=== PATIENT | male | born 1990 | race Caucasian/White ===

== ENCOUNTER 2016-08-15 13:58 | Inpatient (IN) | payer OTHER ==
[2016-08-15 15:34] VITALS: BMI 25.3
--- NOTE | 2016-08-15 18:05 | HP ---
CIWA Score - CIWA Score Nausea/Vomitin Muscle Tremors: 3 Anxiety: 4-Mod. Anxious/Guarded Agitation: 4-Moderately Restless Paroxysmal Sweats: 1-Minimal Palms Moist Orientation: 1-Uncertain about Date Tacttile Disturbances: 0-None Auditory Disturbances: 0-None Visual Disturbances: 0-None Headache: 0-None Present CIWA-Ar Total Score: 15 Admission ROS BHS - HPI Chief Complaint: WITHDRAWAL SX Allergies/Adverse Reactions: Allergies Allergy/AdvReac Type Severity Reaction Status Date / Time No Known Allergies Allergy Verified 08/15/16 16:57 History of Present Illness: 26 YEARS OLD MALE WITH LONG HISTORY OF ALCOHOL AND NICOTINE DEPENDENCE, DENIES MEDICAL ISSUE HAS BIPOLAR II TREATED REPRIDAL AND DEPAKOTE, IS ADMITTED TO DETOX Exam Limitations: No Limitations - Ebola screening Have you traveled outside of the country in the last 21 days: No Have you had contact with anyone from an Ebola affected area: No Have you been sick,other than usual withdrawal symptoms: No Do you have a fever: No - Review of Systems Constitutional: Chills, Changes in sleep, Weight Stable EENT: reports: Other (EYE GLASSES) Respiratory: reports: No Symptoms reported Cardiac: reports: No Symptoms Reported GI: reports: Nausea, Poor Fluid Intake, Vomiting, Abdominal cramping : reports: No Symptoms Reported Musculoskeletal: reports: No Symptoms Reported Integumentary: reports: No Symptoms Reported Neuro: reports: No Symptoms reported Endocrine: reports: No Symptoms Reported Hematology: reports: No Symptoms Reported Psychiatric: reports: Judgement Intact, other (BIPOLAR II) Other Systems: Reviewed and Negative Patient History - Patient Medical History Hx Anemia: No Hx Asthma: No Hx Chronic Obstructive Pulmonary Disease (COPD): No Hx Cancer: No Hx Cardiac Disorders: No Hx Congestive Heart Failure: No Hx Hypertension: No Hx Hypercholesterolemia: No Hx Pacemaker: No HX Cerebrovascular Accident: No Hx Seizures: No Hx Dementia: No Hx Diabetes: No Hx Gastrointestinal Disorders: No Hx Liver Disease: No Hx Genitourinary Disorders: No Hx Sexually Transmitted Disorders: No Hx Renal Disease (ESRD): No Hx Thyroid Disease: No Hx Human Immunodeficiency Virus (HIV): No Hx Hepatitis C: No Hx Depression: No Hx Suicide Attempt: No Hx Bipolar Disorder: Yes Hx Schizophrenia: No - Patient Surgical History Past Surgical History: No Hx Neurologic Surgery: No Hx Cataract Extraction: No Hx Cardiac Surgery: No Hx Lung Surgery: No Hx Breast Surgery: No Hx Breast Biopsy: No Hx Abdominal Surgery: No Hx Appendectomy: No Hx Cholecystectomy: No Hx Genitourinary Surgery: No Hx Orthopedic Surgery: No - PPD History Previous Implant?: Yes Documented Results: Positive w/proof Implanted On Prior [facility] Admission?: No PPD to be Administered?: No - Smoking Cessation Smoking history: Current every day smoker Have you smoked in the past 12 months: No Aproximately how many cigarettes per day: 20 Cigars Per Day: 0 Hx Chewing Tobacco Use: No Initiated information on smoking cessation: Yes 'Breaking Loose' booklet given: 08/15/16 - Substance & Tx. History Hx Alcohol Use: Yes Hx Substance Use: Yes Substance Use Type: Alcohol, Marijuana Hx Substance Use Treatment: Yes - Substances Abused Alcohol Route: Oral Frequency: Daily Amount used: LIQUOR- 1PINT, BEER- 3 (16OZ) Age of first use: 14 Date of Last Use: 08/15/16 Marijuana/Hashish Route: Smoking Frequency: Daily Amount used: $100 WORTH Age of first use: 14 Date of Last Use: 08/15/16 Admission Physical Exam BHS - Vital Signs Vital Signs: Vital Signs - 24 hr 08/15/16 15:32 Temperature 97.5 F L Pulse Rate 88 Respiratory 18 Rate Blood Pressure 116/60 - Physical General Appearance: Yes: Nourished, Appropriately Dressed, Mild Distress, Tremorous, Irritable, Sweating, Anxious HEENTM: Yes: Hearing grossly Normal, Normal ENT Inspection, Normocephalic, Normal Voice Respiratory: Yes: Chest Non-Tender, Lungs Clear, Normal Breath Sounds, No Respiratory Distress, No Accessory Muscle Use Neck: Yes: Supple, Trachea in good position Breast: Yes: Breasts Symetrical Cardiology: Yes: Regular Rhythm, Regular Rate, S1, S2 Abdominal: Yes: Non Tender, Soft Genitourinary: Yes: Within Normal Limits Back: Yes: Normal Inspection Musculoskeletal: Yes: full range of Motion, Gait Steady Extremities: Yes: Normal Range of Motion, Non-Tender, Tremors Neurological: Yes: Alert, Motor Strength 5/5, Normal Response, Other (BIPOLAR II ) Integumentary: Yes: Warm, Clammy Lymphatic: Yes: Within Normal Limits - Diagnostic (1) Alcohol dependence with uncomplicated withdrawal Current Visit: Yes Status: Acute (2) Nicotine dependence Current Visit: Yes Status: Acute Qualifiers: Nicotine product type: cigarettes Substance use status: in withdrawal Qualified Code(s): F17.213 - Nicotine dependence, cigarettes, with withdrawal (3) Vomiting Current Visit: Yes Status: Acute Qualifiers: Vomiting type: unspecified Vomiting Intractability: unspecified Nausea presence: with nausea Qualified Code(s): R11.2 - Nausea with vomiting, unspecified Comment: ALCOHOL WITHDRAWAL RELATED ZOFRAN (4) Bipolar II disorder Current Visit: Yes Status: Suspected Comment: BIPOLAR II LEVEL PENDING Cleared for Admission [facility] - Detox or Rehab [facility] Level of Care: Medically Managed Detox Regimen/Protocol: Librium [facility] Breath Alcohol Content Breath Alcohol Content: 0 Urine Drug Screen - Results Drug Screen Negative: No Urine Drug Screen Results: THC-Marijuana
[2016-08-15] MEDS ORDERED: MENTHOL/PHENOL 1 EACH UD MM PRN (18:12)
[2016-08-15] MEDS ORDERED: MAGNESIUM CITRATE 300 ML BOTTLE PO PRN (18:12)
[2016-08-15] MEDS ORDERED: LOPERAMIDE HCL 2 MG CAPSULE PO PRN (18:12)
[2016-08-15] MEDS ORDERED: guaiFENesin/D-METHORPHAN HB 10 ML UNIT-DOSE CUPS PO PRN (18:12)
[2016-08-15] MEDS ORDERED: MAGNESIUM HYDROX 2400MG/30ML ORAL SUSPENSION 30 ML CUP PO PRN (18:12)
[2016-08-15] MEDS ORDERED: P-EPHED 60MG/TRIPROLIDI 2.5MG TABLET PO PRN (18:12)
[2016-08-15] MEDS ORDERED: ACETAMINOPHEN 325 MG TABLET (FP) PO PRN (18:12)
[2016-08-15] MEDS ORDERED: MAG HYDROX/AL HYDROX/SIMETH 30 ML UNIT-DOSE CUP PO PRN (18:12)
[2016-08-15] MEDS ORDERED: IBUPROFEN 400 MG TABLET (FP) PO PRN (18:12)
[2016-08-15] MEDS ORDERED: chlordiazePOXIDE HCL 25 MG CAPSULE PO PRN (18:12)
[2016-08-15] MEDS ORDERED: ONDANSETRON *ODT* 4 MG TABLET SL PRN (18:19)
[2016-08-15] MEDS: THIAMINE HCL 100 MG TABLET (FP) PO SCH (22:33)
[2016-08-15] MEDS: chlordiazePOXIDE HCL 25 MG CAPSULE PO SCH (22:33)
[2016-08-15] MEDS: diphenhydrAMINE HCL 50 MG CAPSULE PO PRN (22:33)
[2016-08-16] MEDS: chlordiazePOXIDE HCL 25 MG CAPSULE PO SCH ×4 (05:49→22:51)
[2016-08-16] MEDS: NICOTINE POLACRILEX 4 MG GUM BC PRN ×2 (06:33→10:55)
[2016-08-16] MEDS ORDERED: PRENATAL VITAMINS W/ FOLIC ACID TABLET (FP) PO SCH (10:00)
[2016-08-16] MEDS ORDERED: NICOTINE 21 MG/24 HOURS TOPICAL PATCH TD SCH (10:00)
[2016-08-16 10:14] LABS: MCH 28.5 pg (25.7-33.7); MCHC 32.8 g/dl (32.0-35.9); MEAN PLT VOLUME 11.7 fl (7.5-11.1); PLATELET COUNT 140 K/MM3 (134-434); RDW 14.9 % (11.9-15.9); WHITE BLOOD COUNT 13.7 K/mm3 (4.0-10.0)
[2016-08-16 10:18] LABS: URINE APPEARANCE CLEAR; URINE BILIRUBIN NEGATIVE (NEGATIVE); URINE BLOOD NEGATIVE (NEGATIVE); URINE COLOR LTYELLOW; URINE GLUCOSE (UA) NEGATIVE (NEGATIVE); URINE KETONE NEGATIVE (NEGATIVE); URINE LEUK ESTERASE NEGATIVE (NEGATIVE); URINE NITRITE NEGATIVE (NEGATIVE); URINE PROTEIN NEGATIVE (NEGATIVE); URINE UROBILINOGEN NEGATIVE E.U./dl (0.2-1.0)
[2016-08-16 10:36] LABS: ALBUMIN 3.7 g/dl (3.4-5.0); ALK PHOS 68 U/L (45-117); ANION GAP 7 (8-16); BILIRUBIN,TOTAL 0.2 mg/dL (0.2-1.0); CALCIUM 9.2 mg/dL (8.5-10.1); CO2 29 mmol/L (21-32); CREATININE 1.1 mg/dL (0.7-1.3); GLUCOSE,RANDOM 125 mg/dL (74-106); SGOT/AST 27 U/L (15-37); SGPT/ALT 27 U/L (12-78); TOT PROT 7.3 g/dl (6.4-8.2)
--- NOTE | 2016-08-16 11:52 | CONSULT ---
[facility] Psychiatric Consult - Data Date of interview: 08/16/16 Admission source: [facility] Identifying data: First admission to [facility] for this 26 y/o AA male seeking detox treatment on for alcohol and marijuana (K2) dependence.Patient is single without children,homeless,unemployed and supported on food stamps. Substance Abuse History: - Smoking Cessation. Smoking history: Current every day smoker. Have you smoked in the past 12 months: No. Aproximately how many cigarettes per day: 20. Cigars Per Day: 0. Hx Chewing Tobacco Use: No. Initiated information on smoking cessation: Yes. 'Breaking Loose' booklet given : 08/15/16. - Substance & Tx. History. Hx Alcohol Use: Yes. Hx Substance Use : Yes. Substance Use Type: Alcohol, Marijuana. Hx Substance Use Treatment: Yes. - Substances Abused. Alcohol. Route: Oral. Frequency: Daily. Amount used: LIQUOR- 1PINT, BEER- 3 (16OZ). Age of first use: 14. Date of Last Use: 08/15/16. Marijuana/Hashish. Route: Smoking. Frequency: Daily. Amount used: $100 WORTH. Age of first use: 14. Date of Last Use: 08/15/16. Confirmed by patient in this interview. Medical History: No reported medical problems. Psychiatric History: Patient admits to a history of multiple psychiatric hospitalizations in his lifetime (since age 19).Discharged from [facility] on 08/01/16.Diagnosed with " Schizophrenia and Bipolar Disorder ".Medications :risperdal 3 mg po bid + depakote 500 mg po bid (confirmed by review of pharmacy claims of 08/04/16).Mr Correa admits to total non-adherence to psychiatric aftercare (medications/clinic appointments).Has not taken " one pill since I left [place]." He states that his backpack (containing his papers and bottles of medications) [place]No history of suicide attempts. Physical/Sexual Abuse/Trauma History: Patient denies. Additional Comment: Urine Drug Screen Results: THC-Marijuana Mental Status Exam - Mental Status Exam Alert and Oriented to: Time, Place, Person Cognitive Function: Good Patient Appearance: Unkempt, Disheveled Mood: Hopeful, Euthymic Affect: Appropriate, Normal Range Patient Behavior: Appropriate, Cooperative Speech Pattern: Clear Voice Loudness: Normal Thought Process: Goal Oriented Thought Disorder: Not Present Hallucinations: Denies Suicidal Ideation: Denies Homicidal Ideation: Denies Insight/Judgement: Poor Sleep: Well Appetite: Good Muscle strength/Tone: Normal Gait/Station: Normal Psychiatric Findings - Problem List ([place] 1, 2,3) (1) Alcohol dependence with uncomplicated withdrawal Current Visit: Yes Status: Acute (2) Nicotine dependence Current Visit: Yes Status: Acute Qualifiers: Nicotine product type: cigarettes Substance use status: in withdrawal Qualified Code(s): F17.213 - Nicotine dependence, cigarettes, with withdrawal (3) Marijuana dependence Current Visit: Yes Status: Acute (4) Substance induced mood disorder Current Visit: Yes Status: Acute (5) Bipolar disorder Current Visit: Yes Status: Chronic - Initial Treatment Plan Initial Treatment Plan: Psychoeducation.Detoxification.Medications : depakote 500 mg po bid + risperdal 1 mg po daily + 2 mg po hs.Side effects/benefits discussed with the patient.He agrees with this plan.Valproic acid level is requested.Observation.
[2016-08-16] MEDS ORDERED: risperiDONE 1 MG TABLET (FP) PO SCH (12:45)
--- NOTE | 2016-08-16 16:12 | EKG ---
Test Reason : Blood Pressure : / mmHG Vent. Rate : 075 BPM Atrial Rate : 075 BPM P-R Int : 142 ms QRS Dur : 086 ms QT Int : 378 ms P-R-T Axes : 043 058 034 degrees QTc Int : 422 ms NORMAL SINUS RHYTHM VOLTAGE CRITERIA FOR LEFT VENTRICULAR HYPERTROPHY EARLY REPOLARIZATION ABNORMAL ECG NO PREVIOUS ECGS AVAILABLE Confirmed by DARLYN ALONZO MD ([id number]) on 08/16/2016 4:12:04 PM Referred By: Confirmed By:DARLYN ALONZO MD
--- NOTE | 2016-08-16 17:44 | PN ---
[facility] CIWA - CIWA Score Nausea/Vomitin-Mild Nausea/No Vomiting Muscle Tremors: 4-Moderate,w/Arms Extend Anxiety: 4-Mod. Anxious/Guarded Agitation: 3 Paroxysmal Sweats: 3 Orientation: 0-Oriented Tacttile Disturbances: 0-None Auditory Disturbances: 0-None Visual Disturbances: 0-None Headache: 0-None Present CIWA-Ar Total Score: 15 S Progress Note (SOAP) Subjective: Anxiety,tremors,sweating,interrupted sleep,restless Objective: 08/16/16 17:43 Vital Signs - 8 hr 08/16/16 08/16/16 08/16/16 10:39 13:38 17:14 Temperature 96.6 F L 97.7 F 96.4 F L Pulse Rate 90 84 86 Respiratory 20 18 20 Rate Blood Pressure 126/76 138/83 121/81 Laboratory Last Values WBC 13.7 K/mm3 (4.0-10.0) H 08/16/16 06:20 RBC 4.58 M/mm3 (4.00-5.60) 08/16/16 06:20 Hgb 13.1 GM/dL (11.7-16.9) 08/16/16 06:20 Hct 39.9 % (35.4-49) 08/16/16 06:20 MCV 87.0 fl (80-96) 08/16/16 06:20 MCHC 32.8 g/dl (32.0-35.9) 08/16/16 06:20 RDW 14.9 % (11.9-15.9) 08/16/16 06:20 Plt Count 140 K/MM3 (134-434) 08/16/16 06:20 MPV 11.7 fl (7.5-11.1) H 08/16/16 06:20 Sodium 141 mmol/L (136-145) 08/16/16 06:20 Potassium 4.0 mmol/L (3.5-5.1) 08/16/16 06:20 Chloride 105 mmol/L (98-107) 08/16/16 06:20 Carbon Dioxide 29 mmol/L (21-32) 08/16/16 06:20 Anion Gap 7 (8-16) L 08/16/16 06:20 BUN 17 mg/dL (7-18) 08/16/16 06:20 Creatinine 1.1 mg/dL (0.7-1.3) 08/16/16 06:20 Creat Clearance w eGFR > 60 (>60) 08/16/16 06:20 Random Glucose 125 mg/dL (74-106) H 08/16/16 06:20 Calcium 9.2 mg/dL (8.5-10.1) 08/16/16 06:20 Total Bilirubin 0.2 mg/dL (0.2-1.0) 08/16/16 06:20 AST 27 U/L (15-37) 08/16/16 06:20 ALT 27 U/L (12-78) 08/16/16 06:20 Alkaline Phosphatase 68 U/L (45-117) 08/16/16 06:20 Total Protein 7.3 g/dl (6.4-8.2) 08/16/16 06:20 Albumin 3.7 g/dl (3.4-5.0) 08/16/16 06:20 Urine Color Ltyellow 08/16/16 08:20 Urine Appearance Clear 08/16/16 08:20 Urine pH 6.0 (5.0-8.0) 08/16/16 08:20 Ur Specific [place] 1.018 (1.001-1.035) 08/16/16 08:20 Urine Protein Negative (NEGATIVE) 08/16/16 08:20 Urine Glucose (UA) Negative (NEGATIVE) 08/16/16 08:20 Urine Ketones Negative (NEGATIVE) 08/16/16 08:20 Urine Blood Negative (NEGATIVE) 08/16/16 08:20 Urine Nitrite Negative (NEGATIVE) 08/16/16 08:20 Urine Bilirubin Negative (NEGATIVE) 08/16/16 08:20 Urine Urobilinogen Negative E.U./dl (0.2-1.0) 08/16/16 08:20 Ur Leukocyte Esterase Negative (NEGATIVE) 08/16/16 08:20 Valproic Acid < 3.000 ug/ml (50-100) L 08/16/16 06:20 RPR Titer Nonreactive (NONREACTIVE) 08/16/16 06:20 labs noted Assessment: 08/16/16 17:43 withdrawal sx. Plan: continue detox
[2016-08-16] MEDS ORDERED: risperiDONE 2 MG TABLET PO SCH (22:00)
[2016-08-16] MEDS ORDERED: DIVALPROEX SODIUM 500 MG TABLET E.C. PO SCH (22:00)
[2016-08-16 22:13] VITALS: TEMP 96.5
[2016-08-16] MEDS: THIAMINE HCL 100 MG TABLET (FP) PO SCH (22:51)
[2016-08-16] MEDS: diphenhydrAMINE HCL 50 MG CAPSULE PO PRN (22:53)
[2016-08-17] MEDS: chlordiazePOXIDE HCL 25 MG CAPSULE PO SCH (05:34)
[2016-08-17 06:42] VITALS: BP 136/79; PULSE 94
--- NOTE | 2016-08-17 11:25 | DS ---
[facility] Detox Discharge Summary Admission Date: 08/15/16 Discharge Date: 08/17/16 - History Present History: Alcohol Dependence, Cannabis Dependence Pertinent Past History: mood disorder - Physical Exam Results Vital Signs: Vital Signs Temperature 96.5 F L 08/17/16 06:42 Pulse Rate 94 H 08/17/16 06:42 Respiratory Rate 18 08/17/16 06:42 Blood Pressure 136/79 08/17/16 06:42 O2 Sat by Pulse Oximetry (%) Pertinent Admission Physical Exam Findings: Withdrawal sx. Laboratory Tests 08/16/16 08/16/16 08/16/16 06:20 06:20 06:20 WBC 13.7 H RBC 4.58 Hgb 13.1 Hct 39.9 MCV 87.0 MCHC 32.8 RDW 14.9 Plt Count 140 MPV 11.7 H Sodium 141 Potassium 4.0 Chloride 105 Carbon Dioxide 29 Anion Gap 7 L BUN 17 Creatinine 1.1 Creat Clearance w eGFR > 60 Random Glucose 125 H Calcium 9.2 Total Bilirubin 0.2 AST 27 ALT 27 Alkaline Phosphatase 68 Total Protein 7.3 Albumin 3.7 Urine Color Urine Appearance Urine pH Ur Specific [place] Urine Protein Urine Glucose (UA) Urine Ketones Urine Blood Urine Nitrite Urine Bilirubin Urine Urobilinogen Ur Leukocyte Esterase Valproic Acid RPR Titer Nonreactive 08/16/16 08/16/16 06:20 08:20 WBC RBC Hgb Hct MCV MCHC RDW Plt Count MPV Sodium Potassium Chloride Carbon Dioxide Anion Gap BUN Creatinine Creat Clearance w eGFR Random Glucose Calcium Total Bilirubin AST ALT Alkaline Phosphatase Total Protein Albumin Urine Color Ltyellow Urine Appearance Clear Urine pH 6.0 Ur Specific [place] 1.018 Urine Protein Negative Urine Glucose (UA) Negative Urine Ketones Negative Urine Blood Negative Urine Nitrite Negative Urine Bilirubin Negative Urine Urobilinogen Negative Ur Leukocyte Esterase Negative Valproic Acid < 3.000 L RPR Titer labs noted - Medication Discharge Medications: Ambulatory Orders Divalproex [Depakote -] 500 mg PO BID #60 tablet.ec 08/16/16 Risperidone [Risperdal] 2 mg PO BID #60 tablet 08/16/16 - Diagnosis (1) Alcohol dependence with uncomplicated withdrawal Status: Acute (2) Marijuana dependence Status: Acute (3) Nicotine dependence Status: Acute Qualifiers: Nicotine product type: cigarettes Substance use status: in withdrawal Qualified Code(s): F17.213 - Nicotine dependence, cigarettes, with withdrawal (4) Substance induced mood disorder Status: Acute (5) Bipolar disorder Status: Chronic - AMA Did Patient Leave Against Medical Advice: Yes
[2016-08-17] MEDS ORDERED: chlordiazePOXIDE 5 MG CAPSULE PO SCH (23:00)
[2016-08-18] MEDS ORDERED: chlordiazePOXIDE HCL 10 MG CAPSULE PO SCH (23:00)
== END 2016-08-17 08:35 | disposition left against medical advice (07) | DRG 770 ==
LOC: YASAS 13:58 → Y3N 18:23
PROVIDERS: ADMIT Internal Medicine; ATTEND Internal Medicine
PROC: HZ2ZZZZ Detoxification Services for Substance Abuse Treatment (ICD-10-PCS; principal; 2016-08-15)
DX: F10.230 Alcohol dependence with withdrawal, uncomplicated (principal); F12.20 Cannabis dependence, uncomplicated; F17.210 Nicotine dependence, cigarettes, uncomplicated; F19.24 Other psychoactive substance dependence with psychoactive substance-induced mood disorder; F31.81 Bipolar II disorder
CPT/HCPCS: 36415; 80053; 80164; 81003; 85027; 86593; 93005; 93010; J2794